=== PATIENT | male | born 1985 | race Caucasian/White ===

== ENCOUNTER 2018-11-08 20:37 | Inpatient (IN) | payer OTHER, MEDICAID, SELFPAY ==
[2018-11-08] VITALS (13 sets, daily range): BP systolic 110–138; BP diastolic 70–98; PULSE 97–125; RESP 13–26; TEMP 36.5; O2SAT 98–100
--- NOTE | 2018-11-08 | DI.RAD.S_ITS ---
PROCEDURE: XR ELBOW LT 2V INDICATIONS: post reduction left elbow TECHNIQUE: 2 views of the elbow were acquired. COMPARISON: None. FINDINGS: Bones: Mildly comminuted fracture involving the proximal third of the ulnar diaphysis with full shaft width displacement of the distal fracture fragment. Minimal foreshortening. There is also dislocation of the radiocapitellar joint. No radial fracture is visualized. No suspicious bony lesions. Soft tissues: No elbow joint effusion. No suspicious soft tissue calcifications. IMPRESSION: Mildly comminuted proximal left ulnar fracture with dislocation of the radiocapitellar joint. Dictated by: Solomon Bergman M.D. on 11/09/2018 at 8:05 Approved by: Solomon Bergman M.D. on 11/09/2018 at 8:07
--- NOTE | 2018-11-08 20:44 | PC.NURSE ---
Dr. Mancilla complete initial evaluation. Jordon ford on pt for comfort. Bedside ultrasound by Dr. Manclila unremarkable per his report.
--- NOTE | 2018-11-08 20:45 | DI.RAD.S_ITS ---
PROCEDURE: XR FOREARM RT 2V INDICATIONS: trauma TECHNIQUE: 2 views of the forearm were acquired. COMPARISON: None. FINDINGS: Bones: There is a comminuted, displaced fracture of the proximal left ulnar diaphysis. The radial head is proximally dislocated. No other fracture or dislocation. Soft tissues: No suspicious soft tissue calcifications or masses. IMPRESSION: Displaced ulnar fracture and dislocated radial head. Dictated by: Melida Crowell M.D. on 11/08/2018 at 21:10 Approved by: Melida Crowell M.D. on 11/08/2018 at 21:11
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
--- NOTE | 2018-11-08 20:49 | PC.NURSE ---
Pt refusing IV, lab work and pain medications. Pt is a/o x 3. Had no LOC. Dr. Mancilla aware.
--- NOTE | 2018-11-08 20:57 | PC.NURSE ---
Pt declines IV and pain medicine. Requesting PO ibuprofen. Explained to patient that, per provider, he is to be NPO for now. Offered IM Dilaudid injection. Pt declined and does not want narcotics. Offered ketorolac IM injection. Pt also declines this. Communicated to patient that he can let me know if he changes his mind at any time. Gave patient phone per his request and he called his and left voicemail for her.
[2018-11-08] MEDS: PROPOFOL 200 MG/20 ML VIAL 50 MG IV (22:04)
[2018-11-08] MEDS: PROPOFOL 200 MG/20 ML VIAL 100 MG IV (22:18)
[2018-11-08] MEDS: MORPHINE 2 MG/ML INJ IV (22:42)
[2018-11-08] MEDS: ONDANSETRON 4 MG/2 ML INJ IV (22:43)
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
--- NOTE | 2018-11-08 23:15 | PC.NURSE ---
Laceration to the left forehead was cleaned. Abrasions to bilateral distal legs were cleaned. Patient's arm was splinted by Dr. Durand, orthopedic doctor. Tolerated procedural sedation well. Awake and alert and requesting pain medication, which was administered per order. Patient remains tachycardic and irregular with heart rate up into 140s-160s. Provider was notified and EKG obtained.
--- NOTE | 2018-11-08 23:37 | DI.RAD.S_ITS ---
PROCEDURE: XR CHEST 1V INDICATIONS: Atrial fibrulation TECHNIQUE: One view of the chest was acquired. COMPARISON: None. FINDINGS: Surgical changes and devices: None. Lungs and pleura: Lungs are clear. No pleural effusions or pneumothorax. Mediastinum: Mediastinal contours appear normal. Heart size is normal. Bones and chest wall: No suspicious bony lesions. Overlying soft tissues appear unremarkable. IMPRESSION: Chest without acute cardiopulmonary abnormalities. No significant discrepancy with preliminary assessment/report by the emergency department staff. Dictated by: Solomon Bergman M.D. on 11/09/2018 at 8:11 Approved by: Solomon Bergman M.D. on 11/09/2018 at 8:12
[2018-11-08] MEDS: dilTIAZem 5 MG/ML SDV 10 MG IV (23:39)
[2018-11-08 23:57] LABS: Add Manual Diff / Slide Review NO; Basophils Absolute Auto 0 /uL (0-100); Basophils Percent Auto 0.1 % (0-2); Eosinophils Absolute Auto 0 /uL (0-450); Eosinophils Percent Auto 0.1 % (2-4); Hematocrit 39.9 % (41-53); Hemoglobin 13.7 g/dL (13.5-17.5); Lymphocytes Absolute Auto 800 /uL (1100-4500); Lymphocytes Percent Auto 5.6 % (25-40); Mean Corpuscular HGB Conc 34.4 % (30-36); Mean Corpuscular Hemoglobin 29.1 PG (26-34); Mean Corpuscular Volume 84.8 fL (80-100); Monocytes Absolute Auto 900 /uL (0-900); Monocytes Percent Auto 6.4 % (3-14); Neutrophils Absolute Auto 12100 /uL (1500-7000); Neutrophils Percent Auto 87.8 % (50-75); Platelet Count 201 X10^3/uL (150-400); Red Cell Distribution Width 13.1 % (11.6-14.8); White Blood Cell Count 13.8 X10^3/uL (4.5-11.0)
[2018-11-09] VITALS (30 sets, daily range): BP systolic 103–131; BP diastolic 55–87; PULSE 67–141; RESP 10–20; TEMP 36.7–37.6; O2SAT 93–99; BMI 24.7
[2018-11-09 00:18] LABS: Troponin I < 0.012 ng/mL (0.01-0.034)
[2018-11-09 00:20] LABS: Magnesium 1.7 mg/dL (1.6-2.3)
[2018-11-09 00:21] LABS: Alanine Aminotransferase 39 IU/L (21-72); Albumin 4.2 g/dL (3.5-5.0); Albumin Globulin Ratio 1.5 (1.0-2.8); Alkaline Phosphatase 45 U/L (38-126); Aspartate Aminotransferase 39 IU/L (17-59); BUN Creatinine Ratio 18.3 (6-22); Bilirubin Total 0.4 mg/dL (0.2-1.3); Blood Urea Nitrogen 11 mg/dL (9-20); Calcium 9.2 mg/dL (8.4-10.2); Carbon Dioxide 25 mmol/L (22-32); Chloride 107 mmol/L (98-107); Estimated Glomerular Filt Rate > 60.0 mL/min (>60); Globulin 2.8 g/dL (1.7-4.1); Glucose 138 mg/dL (70-100); HEMOLYSIS 0 (0-50); Potassium 3.6 mmol/L (3.4-5.1); Sodium 139 mmol/L (137-145)
--- NOTE | 2018-11-09 00:21 | PC.NURSE ---
Pt declined receiving diltiazem drip stating he does not like to take medications, Pt teaching by RN and Dr Mancilla, pt request honored and pt did not receive. at bedside.
--- NOTE | 2018-11-09 00:52 | DI.ECHO.S_ITS ---
[facility] +---------+ : : [address] : : : : [id number] : : : : Phone: [phone]+ Echocardiogram Report + + :Name: MISTY BEEBE Study Date: 11/09/2018 Height: 69 in : :[facility] Exam Location: [facility] Weight: 167 lb : : Gender: Male BSA: 1.9 m2 : :: 1985 Age: 33 yrs BP: 122/58 mmHg: :Reason For Study: AFIB : : Performed By: Bakari Schaefer : :Referring: ASHANTI COBURN : + + Interpretation Summary Afib with controlled rate. Normal LV size, wall thickness, wall motion and LV systolic function. EF is 55-60%. No significant valvular abnormalities. Normal chamber sizes. No prior study available for comparison. Procedure: A two-dimensional transthoracic echocardiogram with color flow and Doppler was performed. The study quality was technically difficult. There is no prior echocardiogram noted for this patient. The patient was supine and leaning to the right during the exam. The patient was in atrial fibrillation with controlled ventricular rate during the exam. The patient had a heart rate of 64-96 beats per minute. Left Ventricle: The left ventricle is normal in size. There is normal left ventricular wall thickness. The ejection fraction is estimated to be 55-60%. There are no focal wall motion abnormalities. Right Ventricle: The right ventricle is not well visualized. The right ventricle grossly appears normal in size with probable normal systolic function. Atria: Both atria are normal in size. The interatrial septum is intact with no evidence for an atrial septal defect. Mitral Valve: The mitral valve is normal in structure and function. There is trace mitral regurgitation. Aortic Valve: The aortic valve is trileaflet. The aortic valve opens well. No aortic regurgitation is present. Tricuspid Valve: The tricuspid valve is normal in structure and function. There is trace tricuspid regurgitation. The right ventricular systolic pressure is estimated to be at least 25 mmHg based on an estimated right atrial pressure of 8 mm Hg. Pulmonic Valve: The pulmonic valve is not well seen, but is grossly normal. There is trace pulmonic regurgitation. Great Vessels: The aortic root is normal size. The dimensions of the ascending aorta are normal. The pulmonary artery is normal size. The IVC is of normal diameter and collapses less than 50% with a sniff. This suggests a right atrial pressure of 8 mm Hg. Pericardium/ Pleura There is no pericardial effusion. There is no pleural effusion. MMode/2D Measurements & Calculations LVIDd: 4.4 cm LVOT diam: 2.2 cm LVIDs: 3.2 cm Ao root diam: 3.5 cm FS: 27.1 % Aortic Jxn: 2.4 cm EPSS: 0.32 cm asc Aorta Diam: 3.0 cm IVSd: 0.73 cm LVPWd: 0.72 cm LV boykin. diameter/BSA (cm/m^2): 2.3 LV sys. diameter/BSA (cm/m^2): 1.7 LA dimension: 2.6 cm RA long axis: 4.1 cm LA A2 area: 19.2 cm2 RA area: 13.2 cm2 LA A4 area: 13.3 cm2 RA vol: 35.6 ml LA length (vol): 3.9 cm RA : 18.6 ml/m2 LA vol: 55.1 ml IVC diam: 2.0 cm LA vol index: 28.8 ml/m2 Doppler Measurements & Calculations Ao V2 max: 71.0 cm/sec LVOT Max Cristhian: 64.9 cm/sec Ao V2 mean: 54.7 cm/sec LV V1 max P.7 mmHg Ao max P.0 mmHg LV V1 VTI: 11.4 cm Ao mean P.3 mmHg MARLEY(I,D): 3.0 cm2 Ao V2 VTI: 14.2 cm MARLEY(V,D): 3.4 cm2 sev ratio: 0.81 MARLEY indexed to BSA (cm^2/m^2): 1.6 MV E max cristhian: 114.5 cm/sec TR max cristhian: 204.7 cm/sec MV A max cristhian: 2.2 cm/sec TR max P.8 mmHg MV E/A: 53.0 PA V2 max: 69.8 cm/sec Med Peak E' Cristhian: 11.5 cm/sec PA V2 mean: 49.8 cm/sec E/E' med: 10.0 PA mean P.1 mmHg Lat Peak E' Cristhian: 19.9 cm/sec PA pr(Accel): 14.1 mmHg E/E' lat: 5.8 PA Accel Time: 0.14 sec E/e' average: 7.9 MV dec time: 0.14 sec SV(LVOT): 42.1 ml Electronically signed by: Shane Shanks M.D. on Reading Physician:11/09/2018 03:51 PM
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
[2018-11-09] MEDS: HYDROMORPHONE 0.5 MG INJ IV ×5 (01:45→11:35)
[2018-11-09] MEDS: METOPROLOL TARTRATE 5 MG/5 ML INJ IV (01:45)
[2018-11-09] MEDS: ACETAMINOPHEN 325 MG TABLET 650 MG PO ×2 (01:46→11:54)
[2018-11-09] MEDS: ASPIRIN EC 81 MG TABLET PO (01:47)
[2018-11-09] MEDS: LACTATED RINGERS 1,000 ML 100 ML IV ×3 (01:48→19:55)
[2018-11-09] MEDS: MAGNESIUM SULFATE 2 GM/50 ML PIGGYBACK IV ×2 (02:00→06:41)
[2018-11-09] MEDS: DILTIAZEM 125 MG/125 ML PIGGYBACK IV (02:06)
[2018-11-09] MEDS: POTASSIUM CHLORIDE 40 MEQ in SODIUM CHLORIDE 0.9% 500 ML 130 ML IV (04:00)
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
[2018-11-09 05:26] LABS: Add Manual Diff / Slide Review NO; Basophils Absolute Auto 0 /uL (0-100); Basophils Percent Auto 0.3 % (0-2); Eosinophils Absolute Auto 0 /uL (0-450); Eosinophils Percent Auto 0.1 % (2-4); Hematocrit 38.6 % (41-53); Hemoglobin 13.2 g/dL (13.5-17.5); Lymphocytes Absolute Auto 1300 /uL (1100-4500); Lymphocytes Percent Auto 10.3 % (25-40); Mean Corpuscular HGB Conc 34.2 % (30-36); Mean Corpuscular Hemoglobin 29.2 PG (26-34); Mean Corpuscular Volume 85.4 fL (80-100); Monocytes Absolute Auto 1300 /uL (0-900); Monocytes Percent Auto 10.6 % (3-14); Neutrophils Absolute Auto 10100 /uL (1500-7000); Neutrophils Percent Auto 78.7 % (50-75); Platelet Count 215 X10^3/uL (150-400); Red Blood Cell Count 4.52 X10^6/uL (4.5-5.9); Red Cell Distribution Width 13.3 % (11.6-14.8); White Blood Cell Count 12.8 X10^3/uL (4.5-11.0)
[2018-11-09 05:49] LABS: BUN Creatinine Ratio 16.7 (6-22); Blood Urea Nitrogen 10 mg/dL (9-20); Calcium 8.4 mg/dL (8.4-10.2); Carbon Dioxide 24 mmol/L (22-32); Chloride 106 mmol/L (98-107); Estimated Glomerular Filt Rate > 60.0 mL/min (>60); Glucose 123 mg/dL (70-100); Magnesium 1.5 mg/dL (1.6-2.3); Sodium 137 mmol/L (137-145)
[2018-11-09 06:01] LABS: Troponin I < 0.012 ng/mL (0.01-0.034)
[2018-11-09 06:02] LABS: HEMOLYSIS 60 (0-50); Potassium 4.7 mmol/L (3.4-5.1)
--- NOTE | 2018-11-09 08:32 | PT.IPTN ---
Current Diagnoses Derek's fracture of left ulna, initial encounter for closed fracture (11/09/18) Surgery Performed Operation Date: 11/09/18 16:45 <No data on this case meets the specified criteria> Physical Therapy Treatment Note M3 PT-IP Subjective Start: 11/09/18 08:19 Freq: NEEDED Status: Active Protocol: Document 11/09/18 08:30 (Rec: 11/09/18 08:31 [id number]) Subjective Physical Therapy Visit Type Type Administrative Note Notes Per RN, pt will undergo sx for his Derek fx on L arm ( ORIF) this afternoon around 5 pm. Hold PT until sx is done.
--- NOTE | 2018-11-09 08:42 | OT.IP.TRT ---
Current Diagnoses Monteggia's fracture of left ulna, initial encounter for closed fracture (11/09/18) Surgery Performed Operation Date: 11/09/18 16:45 <No data on this case meets the specified criteria> Occupational Therapy Treatment Note M3 OT- IP Subjective and Pain Start: 11/09/18 08:41 Freq: Status: Active Protocol: Document 11/09/18 08:42 PJM (Rec: 11/09/18 08:43 PJM [id number]) OT- Subjective Occupational Therapy Visit Type Type Administrative Note Visit Start Time 08:42 Notes OT referral received. Chart reviewed. Pt to go to surgery this PM for ORIF of L proximal ulnar fx with radial dislocation. Will hold OT eval today and await post op orders.
--- NOTE | 2018-11-09 09:52 | PC.NURSE ---
SANTHOSH Wheatley verbally allowed pt to have toast and apple juice this am d/t late surgery schedule. Pt will now be NPO except for meds.
--- NOTE | 2018-11-09 11:45 | PC.NURSE ---
Addendum entered by Shakila Esparza R.N. 11/09/18 14:48: Pt to [facility] for surgery. Voided prior to leaving and VSS. with patient as he moved with OR team. Original Note: Pt converted from Afib to NSR at 10:13. Dr. Maxwell notified. EKG confirmed NSR. Pt started on PO Lopressor and will titrate Dilt drip off now.
--- NOTE | 2018-11-09 11:53 | PM.CHAP ---
Nice visit with patient. Prayer and encouragement.
[2018-11-09] MEDS: METOPROLOL IR 25 MG TABLET PO ×2 (11:54→20:43)
[2018-11-09 12:31] LABS: Magnesium 2.2 mg/dL (1.6-2.3)
[2018-11-09 12:32] LABS: BUN Creatinine Ratio 12.9 (6-22); Blood Urea Nitrogen 9 mg/dL (9-20); Calcium 9.1 mg/dL (8.4-10.2); Carbon Dioxide 25 mmol/L (22-32); Chloride 103 mmol/L (98-107); Estimated Glomerular Filt Rate > 60.0 mL/min (>60); Glucose 124 mg/dL (70-100); HEMOLYSIS < 15 (0-50); Potassium 4.1 mmol/L (3.4-5.1); Sodium 137 mmol/L (137-145)
--- NOTE | 2018-11-09 13:00 | PM.PN.1 ---
Subjective Date Patient Seen: 11/09/18 Exam Vital Signs (past 8 hours): - 11/09/18 06:00 11/09/18 06:13 11/09/18 07:00 Temperature 99.6 F Pulse Rate 95 H 91 H Respiratory Rate 17 15 Blood Pressure 127/63 118/62 Pulse Oximetry 95 96 11/09/18 08:00 11/09/18 08:34 11/09/18 08:50 Temperature 99.6 F 99.6 F Pulse Rate 76 Respiratory Rate 17 14 Blood Pressure 128/76 122/58 L Pulse Oximetry 94 96 11/09/18 10:00 11/09/18 11:00 11/09/18 11:35 Temperature 99.0 F Pulse Rate 84 68 Respiratory Rate 14 16 Blood Pressure 117/66 116/55 L Pulse Oximetry 97 96 11/09/18 11:54 11/09/18 12:00 Temperature 99.6 F 99.6 F Pulse Rate 75 Respiratory Rate 11 L Blood Pressure 114/66 Pulse Oximetry 99 Oxygen Delivery Method Room Air Oxygen Flow Rate 0 Objective Labs Result Diagrams: 11/09/18 05:15 11/09/18 12:07 Labs: Laboratory Results - last 24 hr 11/08/18 11/08/18 11/08/18 23:40 23:40 23:40 WBC 13.8 H RBC 4.70 Hgb 13.7 Hct 39.9 L MCV 84.8 MCH 29.1 MCHC 34.4 RDW 13.1 Plt Count 201 Neut % (Auto) 87.8 H Lymph % (Auto) 5.6 L [place] % (Auto) 6.4 Eos % (Auto) 0.1 L Baso % (Auto) 0.1 Neut # (Auto) 75089 H Lymph # (Auto) 800 L [place] # (Auto) 900 Eos # (Auto) 0 Baso # (Auto) 0 Sodium Potassium Chloride Carbon Dioxide BUN Creatinine Estimated GFR BUN/Creatinine Ratio Glucose Calcium Magnesium 1.7 Total Bilirubin AST ALT Alkaline Phosphatase Troponin I < 0.012 Total Protein Albumin Globulin Albumin/Globulin Ratio Nasal Screen MRSA (PCR) 11/08/18 11/09/18 11/09/18 23:40 01:00 05:15 WBC 12.8 H RBC 4.52 Hgb 13.2 L Hct 38.6 L MCV 85.4 MCH 29.2 MCHC 34.2 RDW 13.3 Plt Count 215 Neut % (Auto) 78.7 H Lymph % (Auto) 10.3 L [place] % (Auto) 10.6 Eos % (Auto) 0.1 L Baso % (Auto) 0.3 Neut # (Auto) 14854 H Lymph # (Auto) 1300 [place] # (Auto) 1300 H Eos # (Auto) 0 Baso # (Auto) 0 Sodium 139 Potassium 3.6 Chloride 107 Carbon Dioxide 25 BUN 11 Creatinine 0.60 L Estimated GFR > 60.0 BUN/Creatinine Ratio 18.3 Glucose 138 H Calcium 9.2 Magnesium Total Bilirubin 0.4 AST 39 ALT 39 Alkaline Phosphatase 45 Troponin I Total Protein 7.0 Albumin 4.2 Globulin 2.8 Albumin/Globulin Ratio 1.5 Nasal Screen MRSA (PCR) Negative for mrsa 11/09/18 11/09/18 11/09/18 05:15 05:15 12:07 WBC RBC Hgb Hct MCV MCH MCHC RDW Plt Count Neut % (Auto) Lymph % (Auto) [place] % (Auto) Eos % (Auto) Baso % (Auto) Neut # (Auto) Lymph # (Auto) [place] # (Auto) Eos # (Auto) Baso # (Auto) Sodium 137 Potassium 4.7 Chloride 106 Carbon Dioxide 24 BUN 10 Creatinine 0.60 L Estimated GFR > 60.0 BUN/Creatinine Ratio 16.7 Glucose 123 H Calcium 8.4 Magnesium 1.5 L 2.2 Total Bilirubin AST ALT Alkaline Phosphatase Troponin I < 0.012 Total Protein Albumin Globulin Albumin/Globulin Ratio Nasal Screen MRSA (PCR) 11/09/18 12:07 WBC RBC Hgb Hct MCV MCH MCHC RDW Plt Count Neut % (Auto) Lymph % (Auto) [place] % (Auto) Eos % (Auto) Baso % (Auto) Neut # (Auto) Lymph # (Auto) [place] # (Auto) Eos # (Auto) Baso # (Auto) Sodium 137 Potassium 4.1 Chloride 103 Carbon Dioxide 25 BUN 9 Creatinine 0.70 Estimated GFR > 60.0 BUN/Creatinine Ratio 12.9 Glucose 124 H Calcium 9.1 Magnesium Total Bilirubin AST ALT Alkaline Phosphatase Troponin I Total Protein Albumin Globulin Albumin/Globulin Ratio Nasal Screen MRSA (PCR) Assessment & Plan Assessment & Plan narrative: Brief progress note: Patient seen and examined. Physical exam unchanged other than cardiac exam which is now regular rhythm and rate. Agree with admitting providers assessment and plan. The patient spontaneously converted at 11:13 a.m. and he was titrated off diltiazem gtt and metoprolol tartrate 25 mg twice daily was started. Patient is hemodynamically stable. Patient is scheduled to go to the OR this evening to repair left radial fracture. Quality VTE Deep Vein Thrombosis/Pulmonary Embolism Present on Admission: No
--- NOTE | 2018-11-09 14:55 | PM.PREOP ---
Pre-operative Note Interval Note History & Physical reviewed/Exam performed by Physician: Yes Changes to H&P: Yes H&P completed within 30 days and has changed as indicated here:: The patient was diagnosed with AFib with RVR admitted to hospitalist team and worked up and cleared for surgery.
[2018-11-09] MEDS: LACTATED RINGERS 1,000 ML 42 ML IV (15:11)
[2018-11-09] MEDS: CEFAZOLIN 2 GM/100 ML FROZ.PIGGY IV (16:26)
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
[2018-11-09] MEDS: BUPIVACAINE 0.25% W/ EPI 30 ML VIAL INJ (17:08)
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
--- NOTE | 2018-11-09 20:02 | PC.NURSE ---
1917 - Patient brought back from PACU in bed by nursing staff. Alert and oriented, but sleepy. Denies pain at this time. Left arm in splint and sling at this time, able to move all fingers and CMS intact. 1999 - EKG and electrolytes ordered per ZOE Campos due to telemetry looking different than preop. JAIL GUARD saw tele and EKG results, no new orders.
[2018-11-09 20:19] LABS: BUN Creatinine Ratio 12.9 (6-22); Blood Urea Nitrogen 9 mg/dL (9-20); Calcium 9.2 mg/dL (8.4-10.2); Carbon Dioxide 24 mmol/L (22-32); Chloride 103 mmol/L (98-107); Estimated Glomerular Filt Rate > 60.0 mL/min (>60); Glucose 149 mg/dL (70-100); HEMOLYSIS < 15 (0-50); Potassium 5.2 mmol/L (3.4-5.1); Sodium 136 mmol/L (137-145)
[2018-11-09] MEDS: SODIUM CHLORIDE 0.9% 1,000 ML 100 ML IV (21:15)
[2018-11-10] VITALS: BP 119/75; PULSE 80; RESP 12; TEMP 37.1; O2SAT 97
[2018-11-10] MEDS: OXYCODONE IR 5 MG TABLET PO (00:16)
[2018-11-10] MEDS: CEFAZOLIN 2 GM/100 ML FROZ.PIGGY IV ×2 (00:16→08:45)
[2018-11-10 00:27] LABS: BUN Creatinine Ratio 12.9 (6-22); Blood Urea Nitrogen 9 mg/dL (9-20); Calcium 9.4 mg/dL (8.4-10.2); Carbon Dioxide 26 mmol/L (22-32); Chloride 102 mmol/L (98-107); Estimated Glomerular Filt Rate > 60.0 mL/min (>60); Glucose 158 mg/dL (70-100); HEMOLYSIS < 15 (0-50); Potassium 4.5 mmol/L (3.4-5.1); Sodium 137 mmol/L (137-145)
[2018-11-10 03:44] VITALS: BP 123/59; PULSE 69; RESP 14; TEMP 37.2; O2SAT 98
[2018-11-10 05:28] LABS: Add Manual Diff / Slide Review NO; Basophils Absolute Auto 0 /uL (0-100); Basophils Percent Auto 0.1 % (0-2); Eosinophils Absolute Auto 0 /uL (0-450); Hematocrit 43.2 % (41-53); Hemoglobin 14.7 g/dL (13.5-17.5); Lymphocytes Absolute Auto 700 /uL (1100-4500); Lymphocytes Percent Auto 5.9 % (25-40); Mean Corpuscular HGB Conc 34.1 % (30-36); Mean Corpuscular Hemoglobin 29.3 PG (26-34); Mean Corpuscular Volume 86.1 fL (80-100); Monocytes Absolute Auto 700 /uL (0-900); Monocytes Percent Auto 5.8 % (3-14); Neutrophils Absolute Auto 10400 /uL (1500-7000); Neutrophils Percent Auto 88.2 % (50-75); Platelet Count 226 X10^3/uL (150-400); Red Blood Cell Count 5.01 X10^6/uL (4.5-5.9); Red Cell Distribution Width 13.4 % (11.6-14.8); White Blood Cell Count 11.8 X10^3/uL (4.5-11.0)
[2018-11-10 05:37] LABS: Alanine Aminotransferase 36 IU/L (21-72); Albumin 4.7 g/dL (3.5-5.0); Albumin Globulin Ratio 1.4 (1.0-2.8); Alkaline Phosphatase 34 U/L (38-126); Aspartate Aminotransferase 66 IU/L (17-59); Bilirubin Total 0.5 mg/dL (0.2-1.3); Blood Urea Nitrogen 9 mg/dL (9-20); Calcium 9.8 mg/dL (8.4-10.2); Carbon Dioxide 27 mmol/L (22-32); Chloride 101 mmol/L (98-107); Estimated Glomerular Filt Rate > 60.0 mL/min (>60); Globulin 3.3 g/dL (1.7-4.1); Glucose 143 mg/dL (70-100); HEMOLYSIS < 15 (0-50); Magnesium 1.8 mg/dL (1.6-2.3); Potassium 4.4 mmol/L (3.4-5.1); Sodium 139 mmol/L (137-145)
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
--- NOTE | 2018-11-10 07:16 | PM.PNPO.1 ---
Subjective Date Patient Seen: 11/10/18 Time Patient Seen: 07:16 Interval history: Postop day 1 status post open reduction internal fixation left Monteggia fracture dislocation. Pain controlled postop. Not requiring pain medication. Patient states arm feels better. Very pleased with surgery and expresses and fullness for his care this morning. Exam Vital Signs (past 8 hours): - 11/10/18 00:00 11/10/18 03:44 Temperature 98.7 F 98.9 F Pulse Rate 80 69 Respiratory Rate 12 14 Blood Pressure 119/75 123/59 L Pulse Oximetry 97 98 Oxygen Delivery Method Room Air Oxygen Flow Rate 0 Narrative Exam Narrative: Alert oriented no acute distress Normocephalic atraumatic with exception of minor forehead laceration Respiratory exam unlabored room air Extremity exam: Left upper extremity in splint and sling. Patient endorses sensation to light touch in median radial ulnar nerves. He is able to demonstrate ain function demonstrates interosseous function finger flexion and wrist extension. Minimal finger extension similar to preoperative examination. 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 Slight radial deviation with wrist extension. Compartments soft. Brisk capillary refill. Palpable radial pulse. Objective Labs Result Diagrams: 11/10/18 05:15 11/10/18 05:15 Labs: Laboratory Results - last 24 hr 11/09/18 11/09/18 11/09/18 12:07 12:07 20:03 WBC RBC Hgb Hct MCV MCH MCHC RDW Plt Count Neut % (Auto) Lymph % (Auto) [place] % (Auto) Eos % (Auto) Baso % (Auto) Neut # (Auto) Lymph # (Auto) [place] # (Auto) Eos # (Auto) Baso # (Auto) Sodium 137 136 L Potassium 4.1 5.2 H Chloride 103 103 Carbon Dioxide 25 24 BUN 9 9 Creatinine 0.70 0.70 Estimated GFR > 60.0 > 60.0 BUN/Creatinine Ratio 12.9 12.9 Glucose 124 H 149 H Calcium 9.1 9.2 Magnesium 2.2 2.0 Total Bilirubin AST ALT Alkaline Phosphatase Total Protein Albumin Globulin Albumin/Globulin Ratio 11/09/18 11/10/18 11/10/18 23:55 05:15 05:15 WBC 11.8 H RBC 5.01 Hgb 14.7 Hct 43.2 MCV 86.1 MCH 29.3 MCHC 34.1 RDW 13.4 Plt Count 226 Neut % (Auto) 88.2 H Lymph % (Auto) 5.9 L [place] % (Auto) 5.8 Eos % (Auto) 0.0 L Baso % (Auto) 0.1 Neut # (Auto) 64045 H Lymph # (Auto) 700 L [place] # (Auto) 700 Eos # (Auto) 0 Baso # (Auto) 0 Sodium 137 139 Potassium 4.5 4.4 Chloride 102 101 Carbon Dioxide 26 27 BUN 9 9 Creatinine 0.70 0.60 L Estimated GFR > 60.0 > 60.0 BUN/Creatinine Ratio 12.9 15.0 Glucose 158 H 143 H Calcium 9.4 9.8 Magnesium 1.8 Total Bilirubin 0.5 AST 66 H ALT 36 Alkaline Phosphatase 34 L Total Protein 8.0 Albumin 4.7 Globulin 3.3 Albumin/Globulin Ratio 1.4 Assessment & Plan Post-op Postoperative Procedures Operation Date: 11/09/18 16:45 Actual Procedures Side Surgeon p ORIF left ulna Left Aster Major MD Status post: ORIF left Monteggia fracture dislocation. Doing well postop. 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 Discussed this typically improves with time and no intervention is required at this point. Will continue to monitor his recovery. Follow up in 10-14 days for removal of pari and initiation of early range of motion. Follow up with Dr. Major at [facility] 10[place]14 days Quality VTE Deep Vein Thrombosis/Pulmonary Embolism Present on Admission: No
--- NOTE | 2018-11-10 07:20 | P.PN_ITS ---
Subjective Date Patient Seen: 11/10/18 Time Patient Seen: 07:16 Interval history: Postop day 1 status post open reduction internal fixation left Monteggia fracture dislocation. Pain controlled postop. Not requiring pain medication. Patient states arm feels better. Very pleased with surgery and expresses and fullness for his care this morning. Exam Vital Signs (past 8 hours): - 11/10/18 00:00 11/10/18 03:44 Temperature 98.7 F 98.9 F Pulse Rate 80 69 Respiratory Rate 12 14 Blood Pressure 119/75 123/59 L Pulse Oximetry 97 98 Oxygen Delivery Method Room Air Oxygen Flow Rate 0 Narrative Exam Narrative: Alert oriented no acute distress Normocephalic atraumatic with exception of minor forehead laceration Respiratory exam unlabored room air Extremity exam: Left upper extremity in splint and sling. Patient endorses sensation to light touch in median radial ulnar nerves. He is able to dem onstrate ain function demonstrates interosseous function finger flexion and wrist extension. Minimal finger extension similar to preoperative examination. 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 Slight radial deviation with wrist extension. Compartments soft. Brisk capillary refill. Palpable radial pulse. Objective Labs Result Diagrams: 11/10/18 05:15 11/10/18 05:15 Labs: Laboratory Results - last 24 hr 11/09/18 11/09/18 11/09/18 12:07 12:07 20:03 WBC RBC Hgb Hct MCV MCH MCHC RDW Plt Count Neut % (Auto) Lymph % (Auto) [place] % (Auto) Eos % (Auto) Baso % (Auto) Neut # (Auto) Lymph # (Auto) [place] # (Auto) Eos # (Auto) Baso # (Auto) Sodium 137 136 L Potassium 4.1 5.2 H Chloride 103 103 Carbon Dioxide 25 24 BUN 9 9 Creatinine 0.70 0.70 Estimated GFR > 60.0 > 60.0 BUN/Creatinine Ratio 12.9 12.9 Glucose 124 H 149 H Calcium 9.1 9.2 Magnesium 2.2 2.0 Total Bilirubin AST ALT Alkaline Phosphatase Total Protein Albumin Globulin Albumin/Globulin Ratio 11/09/18 11/10/18 11/10/18 23:55 05:15 05:15 WBC 11.8 H RBC 5.01 Hgb 14.7 Hct 43.2 MCV 86.1 MCH 29.3 MCHC 34.1 RDW 13.4 Plt Count 226 Neut % (Auto) 88.2 H Lymph % (Auto) 5.9 L [place] % (Auto) 5.8 Eos % (Auto) 0.0 L Baso % (Auto) 0.1 Neut # (Auto) 68866 H Lymph # (Auto) 700 L [place] # (Auto) 700 Eos # (Auto) 0 Baso # (Auto) 0 Sodium 137 139 Potassium 4.5 4.4 Chloride 102 101 Carbon Dioxide 26 27 BUN 9 9 Creatinine 0.70 0.60 L Estimated GFR > 60.0 > 60.0 BUN/Creatinine Ratio 12.9 15.0 Glucose 158 H 143 H Calcium 9.4 9.8 Magnesium 1.8 Total Bilirubin 0.5 AST 66 H ALT 36 Alkaline Phosphatase 34 L Total Protein 8.0 Albumin 4.7 Globulin 3.3 Albumin/Globulin Ratio 1.4 Assessment & Plan Post-op Postoperative Procedures Operation Date: 11/09/18 16:45 Actual Procedures Side Surgeon p ORIF left ulna Left Aster Major MD Status post: ORIF left Monteggia fracture dislocation. Doing well postop. 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 Discussed this typically improves with time and no intervention is required at this point. Will continue to monitor his recovery. Follow up in 10-14 days for removal of pari and initiation of early range of motion. Follow up with Dr. Major at [facility] 10-14 days Quality VTE Deep Vein Thrombosis/Pulmonary Embolism Present on Admission: No
[2018-11-10 07:30] VITALS: BP 129/78; PULSE 60; RESP 13; TEMP 38; O2SAT 99
[2018-11-10] MEDS: ACETAMINOPHEN 325 MG TABLET 650 MG PO ×2 (08:45→14:07)
[2018-11-10] MEDS: METOPROLOL IR 25 MG TABLET PO (08:46)
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
--- NOTE | 2018-11-10 11:07 | DI.RAD.S_ITS ---
PROCEDURE: XR FOREARM RT 2V INDICATIONS: Postop left ulna ORIF TECHNIQUE: 2 views of the forearm were acquired. COMPARISON: [facility], CR, XR FOREARM LT 2V, 11/08/2018, 20:33. FINDINGS: Bones: Normal alignment established after ORIF of a ulnar fracture which was centered at the proximal third of the ulnar diaphysis. Soft tissues: No suspicious soft tissue calcifications or masses. IMPRESSION: Normal alignment established after ORIF, resolution of malalignment by the surgical procedure. Dictated by: Andres Luther M.D. on 11/10/2018 at 11:27 Approved by: Andres Luther M.D. on 11/10/2018 at 11:28
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
--- NOTE | 2018-11-10 12:09 | PC.NURSE ---
Addendum entered by Shakila Esparza R.N. 11/10/18 14:09: Pt d/c'd home with staff escort to parking lot. IV removed without incidence. All dc instructions and paperwork signed with verbal confirmation of all instructions. F/U appts made by ICU nursing staff. PO Tylenol given prior to dc. Scripts in hand fo . Addendum entered by Shakila Esparza R.N. 11/10/18 13:26: Confirmed with surgeon instructions for post op wound care to add to dc instructions. Leave dressing in place with sling until follow up appt. May shower but keep LUE completely dry. OT with patient and at bedside reviewing ADL instructions post operatively. Original Note: Pt with both PIV removed without incident. Dr Maxwell at bedside with d/c teaching. OT worked with patient this am- would like to educate with ADLs prior to discharge. Temp of 100.0 treated with ambulation, pulmonary toiletry, po tylenol. LUE xray completed at bedside as ordered. Tele taken off. Post op appt made with [facility] location as requested at 1:20 for a 1:40 appt. [address] [facility], [facility] with [place].
[2018-11-10 12:30] VITALS: BP 116/63; PULSE 89; RESP 16; TEMP 37.7; O2SAT 97
--- NOTE | 2018-11-10 12:33 | PT.IPTN ---
Current Diagnoses Jebggia's fracture of left ulna, initial encounter for closed fracture (11/09/18) Surgery Performed Operation Date: 11/09/18 16:45 Actual Procedures p ORIF left ulna(Left) - Aster Major MD Physical Therapy Treatment Note M3 PT-IP Subjective Start: 11/09/18 08:19 Freq: NEEDED Status: Active Protocol: Document 11/10/18 12:27 AW (Rec: 11/10/18 12:33 AW [id number]) Subjective Physical Therapy Visit Type Type Administrative Note Visit Start Time 10:40 Visit Stop Time 10:45 Total Visit Minutes 5 Notes PT order received and acknowledged. In consultation with OT, pt was cleared with no physical therapy needs. PT casually observed pt's gait on the unit and identified no deviations. Pt to be discharged this afternoon after ADL training with pt's spouse this afternoon.
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
[2018-11-10 13:22] LABS: TSH w/ Reflex to FT4 0.22 uIU/mL (0.47-4.68)
--- NOTE | 2018-11-10 13:45 | OT.IP.TRT ---
Current Diagnoses Hypomagnesemia (11/09/18) Hypokalemia (11/09/18) Monteggia's fracture of left ulna, initial encounter for closed fracture (11/09/18) Surgery Performed Operation Date: 11/09/18 16:45 Actual Procedures p ORIF left ulna(Left) - Aster Major MD Occupational Therapy Treatment Note M2 OT-IP Current Condition Start: 11/09/18 08:41 Freq: Status: Active Protocol: Document 11/10/18 09:21 PJM (Rec: 11/10/18 17:45 PJM [id number]) Occupational Therapy Current Condition Current Condition Evaluation Date 11/10/18 Treatment Diagnosis decr'd self care, LUE function s/p LUE Monteggia fx w/PIN deficits s/p ORIF Diagnosis Onset Date 11/09/18 Post Operative Precautions Shoulder Precautions Sling Weight Bearing Status Weight Bearing Status Touch Down Weight Bearing Allowed Weight Bearing Amount (enter % LUE or #) (%) M3 OT- IP Subjective and Pain Start: 11/09/18 08:41 Freq: Status: Active Protocol: Document 11/10/18 13:45 PJM (Rec: 11/10/18 17:56 PJM [id number]) OT- Subjective Occupational Therapy Visit Type Type Treatment Note Visit Start Time 13:20 Visit Stop Time 13:45 Total Visit Minutes 25 Notes Pt's now here for education. Occupational Therapy Visit Comments Patient Comments When can we go? Patient/Caregiver Goals to go home, regain full use of LUE/hand OT Pain Assessment Pain When Pain Assessed After Treatment Pain Present Pain Present Pain Reported Location L arm Intensity 2 Scale Used Numeric (1 - 10) Description Aching Acute M4 OT- IP ADL's Start: 11/09/18 08:41 Freq: Status: Active Protocol: Document 11/10/18 13:45 PJM (Rec: 11/10/18 17:56 PJM [id number]) OT ADL-Dressing General Eval Lower Body Dressing Ability Minimal Assistance Comments OT Dressing Comments Provided education to pt/ re: dressing sequence for upper body, unilateral lower body techniques, optimal clothing selection. Practiced donning and doffing L sling with pt needing min assist. OT ADL-Bathing Comments OT Bathing Comments Provided education to pt/ re: keeping splint dry and alternative methods for bathing. M6 OT- IP Functional Cognition Start: 11/09/18 08:41 Freq: Status: Active Protocol: Document 11/10/18 13:45 PJM (Rec: 11/10/18 17:56 PJM [id number]) Cognitive Factors Limiting Selfcare Function Cognitive Comments Cognitive Assessment Comments Pt has brighter affect now and anxious to discharge. M8 OT- IP Objective Assessments Start: 11/09/18 08:41 Freq: Status: Active Protocol: Document 11/10/18 13:45 PJM (Rec: 11/10/18 17:56 PJM [id number]) OT Gross Range of Motion Upper Extremity Range of Motion ROM Impairments Provided written instructions for L hand PROM exercises including composite MP/IP flexion/extension and thumb flexion, extension, and circumduction. OT Sensation Assessment Edema Edema Present Edema Comments Provided written education re: edema control techniques for L hand including elevation, AROM within available range and icing 15 min q hour. Demonstrated bed positioning techniques for LUE M9 OT- IP Assessment and Plan Start: 11/09/18 08:41 Freq: Status: Active Protocol: Document 11/10/18 13:45 PJM (Rec: 11/10/18 17:56 PJM [id number]) OT Summary Assessment and Plan Potential Rehabilitation Potential Excellent Summary Progress Towards Goals Safe For Discharge Goals Met Assessment Summary All OT goals achieved for this admission. Pt/ verbalize and demonstrate understanding of all education. Frequency of Treatment Frequency Of Treatment Discharge Discharge Recommendations OT Discharge Recommendations Home with Assistance
== END 2018-11-10 14:21 | disposition home or self-care (01) | DRG 315 ==
LOC: ED 22:28 → ICU 11-09 00:19
PROVIDERS: Internal Medicine; Orthopaedic Surgery Foot and Ankle Surgery; Admitting Provider Nurse Practitioner Adult Health; Emergency Provider Emergency Medicine; Visit Provider Nurse Practitioner Adult Health
PROC: 0PSL04Z Reposition Left Ulna with Internal Fixation Device, Open Approach (ICD-10-PCS; principal; 2018-11-09 16:45)
DX: S52.272A Monteggia's fracture of left ulna, initial encounter for closed fracture (principal); I48.91 Unspecified atrial fibrillation; S01.91XA Laceration without foreign body of unspecified part of head, initial encounter; V95.01XA Helicopter crash injuring occupant, initial encounter
CPT/HCPCS: 12013; 24620; 36415; 71045; 73070; 73090; 80048; 80053; 83735; 84439; 84443; 84484; 85025; 87797; 93005; 93041; 93306; 94770; 96374; 96375; 97110; 97165; 97530; 99152; 99285; 99291; 99292; J0690; J1100; J1170; J2270; J2405; J2704; J3010; J3480

== ENCOUNTER 2019-02-22 06:47 | Day surgery (SDC) | payer OTHER, MEDICAID, SELFPAY ==
[2018-11-09 00:23] VITALS: BMI 24.7
[2019-02-21 10:07] VITALS: BMI 23.6
[2019-02-22] VITALS (14 sets, daily range): BP systolic 99–137; BP diastolic 54–79; PULSE 56–106; RESP 6–20; TEMP 36.5–37.3; O2SAT 97–100; BMI 23.2
[2019-02-22] MEDS: LACTATED RINGERS 1,000 ML 42 ML IV ×2 (08:05→11:09)
--- NOTE | 2019-02-22 08:20 | PM.PREOP ---
Pre-operative Note Interval Note History & Physical reviewed/Exam performed by Physician: Yes Changes to H&P: No
[2019-02-22] MEDS: CEFAZOLIN 2 GM/100 ML FROZ.PIGGY IV ×3 (08:50→21:00)
--- NOTE | 2019-02-22 09:21 | SUR.OPER ---
Supine on padded OR bed, head on pillow, arms secured on padded arm boards at <90 degrees abduction, hand table on left, legs uncrossed, safety belt at thigh, tape over blanket over lower legs.
[2019-02-22] MEDS: BUPIVACAINE 0.25% W/ EPI (PF) 10 ML VIAL 30 ML INJ (11:42)
[2019-02-22] MEDS: MEPERIDINE 50 MG/ML INJ 12.5 MG IV (12:46)
[2019-02-22] MEDS: ONDANSETRON 4 MG/2 ML INJ IV (12:49)
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
[2019-02-22] MEDS: ACETAMINOPHEN 325 MG TABLET 975 MG PO ×2 (14:20→19:06)
[2019-02-22] MEDS: LACTATED RINGERS 1,000 ML 75 ML IV (14:21)
[2019-02-22] MEDS: KETOROLAC 30 MG/ML VIAL IV (17:42)
[2019-02-22] MEDS: OXYCODONE IR 5 MG TABLET PO (20:51)
[2019-02-22] MEDS: DOCUSATE 100 MG CAPSULE PO (20:51)
[2019-02-23] MEDS: KETOROLAC 30 MG/ML VIAL IV ×3 (00:15→12:06)
[2019-02-23 04:17] VITALS: BP 126/75; PULSE 84; RESP 16; TEMP 36.7; O2SAT 100
[2019-02-23 08:00] VITALS: BP 134/70; PULSE 85; RESP 16; TEMP 36.7; O2SAT 100
[2019-02-23] MEDS: ACETAMINOPHEN 325 MG TABLET 975 MG PO (09:02)
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
--- NOTE | 2019-02-23 12:40 | PC.NURSE ---
Discharge instructions and home care handout reviewed with patient, he states understanding and has no further questions or concerns at this time. IV removed intact. Patient states he will picker feeder prescriptions and follow up with dr. Gabriel in the office as scheduled in 2 weeks. Surgical cast and sling in place. Pain well controlled per patient. Patient discharged via wheelchair by SURGERY NURSE with all belongings.
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
== END 2019-02-23 12:49 | disposition home or self-care (01) ==
LOC: OR 06:48 → AC 06:50
PROVIDERS: Visit Provider Orthopaedic Surgery Foot and Ankle Surgery
PROC: 0RSM04Z Reposition Left Elbow Joint with Internal Fixation Device, Open Approach (ICD-10-PCS; CPT 24635; principal; 2019-02-22 08:45)
DX: S52.272 Monteggia's fracture of left ulna (principal); V95 Accident to powered aircraft causing injury to occupant
CPT/HCPCS: 24635; 20902; J0690; J1100; J1170; J1885; J2175; J2250; J2405; J2704; J3010